=== PATIENT | female | born 1980 | race Caucasian/White ===

== ENCOUNTER → 2018-04-19 | Outpatient (CLI) | payer BC, OTHER ==
--- NOTE | 2018-04-19 17:53 | Diagnostic Imaging Report ---
INDICATION: Pain. FINDINGS: Uterus measures 8.7 x 5.0 x 4.7 cm. Cervical nabothian cyst measures 1 cm maximal. There is no adnexal lesion identified. The ovaries are largely obscured by shadowing pelvic bowel gas. Small-volume simple free fluid in the cul-de-sac present. The endometrium is homogeneous at 9.9 mm. IMPRESSION: Small cervical nabothian cyst. Nonfocal endometrium. No fibroid or myometrial mass. Small simple free fluid with nonvisualization of the ovaries obscured by gas. Dictated by: Dictated on workstation # [id number]
== END ==
LOC: RAD 16:26
PROVIDERS: ATTEND Obstetrics & Gynecology
DX: N88.8 Other specified noninflammatory disorders of cervix uteri (principal); R10.2 Pelvic and perineal pain
CPT/HCPCS: 76830; 76856

== ENCOUNTER → 2018-08-25 | Outpatient (CLI) | payer BC ==
--- NOTE | 2018-08-25 11:46 | Diagnostic Imaging Report ---
PROCEDURE: CT abdomen and pelvis with contrast. TECHNIQUE: Multiple contiguous axial images were obtained through the abdomen and pelvis after administration of intravenous contrast. Auto Exposure Controls were utilized during the CT exam to meet ALARA standards for radiation dose reduction. INDICATION: Left upper quadrant pain. COMPARISON: No prior studies are available for comparison. FINDINGS: The lung bases are clear. The liver and gallbladder are unremarkable. No biliary ductal dilatation is seen. Pancreas and spleen are unremarkable. Stomach is nondistended. No adrenal mass is seen. Kidneys are unremarkable. There is no hydronephrosis. Aorta is non-aneurysmal. The small and large bowel loops are unremarkable. No obstruction is seen. There is no free air. There is no ascites. The bladder and uterus are unremarkable. Bony structures appear nonacute. IMPRESSION: Unremarkable CT of the abdomen and pelvis. No acute abnormality is detected. Dictated by: Dictated on workstation # [id number]
== END ==
LOC: RAD 09:00
PROVIDERS: ATTEND Internal Medicine
DX: R10.12 Left upper quadrant pain (principal)
CPT/HCPCS: 74177

== ENCOUNTER → 2021-12-11 | Outpatient (CLI) | payer BC ==
--- NOTE | 2021-12-11 14:36 | Diagnostic Imaging Report ---
Indication: Routine screening. Comparison is made with prior right-sided mammogram from 08/08/2015. 2-D and 3-D bilateral screening mammography was performed with CAD. CAD is utilized. The current study was also evaluated with a Computer Aided Detection (CAD) system. Scattered fibroglandular densities are identified bilaterally. There is a tiny circumscribed nodule in the inferior right breast which appears benign. No spiculated mass or malignant-appearing microcalcifications are seen. There are scattered benign calcifications noted. Axillae are unremarkable. IMPRESSION: BI-RADS Category 2 No mammographic features suspicious for malignancy are identified. ACR BI-RADS Category 2: Benign findings. Result letter will be mailed to the patient. Note: At least 10% of breast cancer is not imaged by mammography. Dictated by: Dictated on workstation # [id number]
== END ==
LOC: RAD 08:25
PROVIDERS: ATTEND Obstetrics & Gynecology
DX: Z12.31 Encounter for screening mammogram for malignant neoplasm of breast (principal)
CPT/HCPCS: 77063; 77067